=== PATIENT | female | born 1950 | race Caucasian/White ===

== ENCOUNTER → 2017-01-10 | Outpatient (REF) | payer MEDICARE, OTHER ==
[~2017-01-10] MED LIST: CALC500T3 PO; LEVO88TA4 PO
[2017-01-10 13:00] LABS: BASOPHILS % (AUTO) 0 % (0-2); EOSINOPHILS # (AUTO) 0.1 10^3uL; EOSINOPHILS % (AUTO) 1 % (0-4); LYMPHOCYTES # (AUTO) 2.2 X10^3; MEAN CORPUSCULAR HEMOGLOBIN 29.3 PG (26.0-34.0); MEAN CORPUSCULAR HGB CONC 33.9 g/dL (31.0-37.0); MEAN CORPUSCULAR VOLUME 86 FL (80-100); MEAN PLATELET VOLUME 11.1 FL (6.0-9.5); MONOCYTES # (AUTO) 0.7 X10^3; MONOCYTES % (AUTO) 10 % (3-11); NEUTROPHILS # (AUTO) 3.7 X10^3; NEUTROPHILS % (AUTO) 56 % (51-67); PLATELET COUNT 312 10^3uL (150-450); WHITE BLOOD COUNT 6.71 10^3uL (4.0-11.0)
[2017-01-10 14:08] LABS: ALBUMIN 4.6 g/dL (3.4-5.0); TOTAL PROTEIN 7.5 g/dL (6.4-8.5)
== END ==
LOC: LAB 12:10
PROVIDERS: ATTEND Family Medicine
DX: Z00.00 Encounter for general adult medical examination without abnormal findings (principal); E03.9 Hypothyroidism, unspecified; Z13.6 Encounter for screening for cardiovascular disorders; M19.90 Unspecified osteoarthritis, unspecified site; M85.80 Other specified disorders of bone density and structure, unspecified site; Z11.59 Encounter for screening for other viral diseases; K21.9 Gastro-esophageal reflux disease without esophagitis
CPT/HCPCS: 80053; 80061; 82306; 84443; 85025; 86803

== ENCOUNTER → 2017-01-10 | Outpatient (CLI) | payer MEDICARE, OTHER ==
--- NOTE | 2017-01-10 19:29 | Diagnostic Imaging Report ---
INDICATION: Screening. EXAMINATION: Bilateral digital screening mammogram with CAD, 01/10/2017. The current study was also evaluated with a Computer Aided Detection (CAD) system. COMPARISON: 11/17/14 and 08/30/13. FINDINGS: The breasts are dense decreasing sensitivity of evaluation with no new suspicious microcalcifications or dominant masses appreciated. IMPRESSION: Stable appearance of the breast with no mammographic evidence for malignancy. Yearly screening is recommended. Dictated by: Dictated on workstation # [id number]
== END ==
LOC: RAD 08:39
PROVIDERS: ATTEND Nurse Practitioner Family
DX: Z12.31 Encounter for screening mammogram for malignant neoplasm of breast (principal)

== ENCOUNTER → 2017-01-16 | Outpatient (CLI) | payer MEDICARE, OTHER ==
--- NOTE | 2017-01-16 16:39 | Diagnostic Imaging Report ---
EXAMINATION: DEXA study. INDICATION: Post menopausal, osteoporosis screening. FINDINGS: Bone mineral density of the lumbar spine, L2-L4 is 0.894 g/cm2 with a T-score of -2.6. This is in the OSTEOPOROSIS range. Bone mineral density of the left femur is 0.779 g/cm2 with a T-score of -1.8. This is in the OSTEOPENIA range. Bone mineral density of the right femur is 0.748 g/cm2 with a T-score of -2.1. This is in the OSTEOPENIA range. Total mean density of the hips is 0.764 g/cm2 with a T-score of -2.0. IMPRESSION: This scan is considered OSTEOPOROTIC according to the World Health Organization guidelines. Dictated by: Dictated on workstation # [id number]
== END ==
LOC: RAD 13:12
PROVIDERS: ATTEND Nurse Practitioner Family
DX: M85.89 Other specified disorders of bone density and structure, multiple sites (principal)
CPT/HCPCS: 77080